=== PATIENT | female | born 2000 | race African-American/Black ===

== ENCOUNTER 2023-02-20 02:48 | Emergency (ER) | payer MEDICAID ==
[~2023-02-20] VITALS: Ht 166.4 cm; Wt 97.5 kg
[2023-02-20 03:02] VITALS: BP 152/97; PULSE 104; RESP 20; TEMP 98.7; O2SAT 99
[2023-02-20] MEDS ORDERED: ACET-2708 PO (05:54)
[2023-02-20] MEDS ORDERED: IBUP-2028 PO (05:54)
== END 2023-02-20 06:58 | disposition home or self-care (01) ==
LOC: ER 02:48
DX: M54.2 Cervicalgia (principal); M54.9 Dorsalgia, unspecified
CPT/HCPCS: 99282